=== PATIENT | female | born 1965 | race Asian ===

== ENCOUNTER 2016-12-03 18:29 | Emergency (ER) | payer OTHER ==
[~2016-12-03] VITALS: Ht 160 cm; Wt 63.5 kg
[2016-12-03] MEDS ORDERED: ACETAMINOPHEN 325 MG TABLET PO ONE (19:30)
[2016-12-03 20:12] VITALS: BP 128/76
== END 2016-12-03 21:15 | disposition home or self-care (01) ==
LOC: EMS 18:31
DX: S13.9XXA Sprain of joints and ligaments of unspecified parts of neck, initial encounter (principal); R51 Headache; V43.52XA Car driver injured in collision with other type car in traffic accident, initial encounter; Y93.89 Activity, other specified; Y92.488 Other paved roadways as the place of occurrence of the external cause; Y99.8 Other external cause status
CPT/HCPCS: 70450; 72125; 99284